=== PATIENT | male | born 1960 | race Caucasian/White ===

== ENCOUNTER 2017-01-15 10:16 | Emergency (ER) | payer BC, OTHER ==
[~2017-01-15] VITALS: Ht 188 cm; Wt 116.1 kg
--- NOTE | 2017-01-15 10:50 | ED Upper Extremity ---
General Chief Complaint: Upper Extremity Stated Complaint: RT ARM SWELLING//POSS BLOOD CLOT Nursing Triage Note: c/o right arm swelling. Onset > 1 week. Mild redness. Denies recent trauma to arm. Nursing Sepsis Screen: No Definite Risk Source: patient Exam Limitations: no limitations History of Present Illness Time seen by provider: 10:48 Initial Comments To ER with swelling and redness to the right arm for about a week. Denies any known trauma or injury. It feels numb and tingly. He has no history of this. No known injury. He reports some joint aches and pains but no fevers or chills. Onset: just prior to arrival Severity: moderate Pain/Injury Location: right arm Method of Injury: unknown Allergies and Home Medications Allergies Coded Allergies: No Known Drug Allergies (Unverified , 01/15/17) Home Medications Amoxicillin/Potassium Clav 1 Each Tablet, 1 EACH PO BID, #14 Prescribed by: TORY DRIVER on 01/15/17 1118 Constitutional: see HPI, No chills, No fever EENTM: see HPI Respiratory: no symptoms reported Cardiovascular: no symptoms reported Genitourinary: no symptoms reported Musculoskeletal: no symptoms reported Skin: see HPI Psychiatric/Neurological: No Symptoms Reported Past Flofeuc-Logrva-Hoehep Hx Patient Social History Recent Foreign Travel: No Contact w/Someone Who Travel: No Recent Infectious Disease Expo: No Physical Exam Vital Signs Vital Sign - Last 12Hours 01/15/17 10:40 Temp 99.9 Pulse 70 Resp 16 B/P (MAP) 159/102 Pulse Ox 98 O2 Delivery Mechanical Ventilator Capillary Refill : Less Than 3 Seconds General Appearance: WD/WN, no apparent distress HEENT: PERRL/EOMI, normal ENT inspection Neck: non-tender, full range of motion Respiratory: no respiratory distress, no accessory muscle use Gastrointestinal: normal bowel sounds, non tender, soft Shoulder: normal inspection, non-tender Elbow/Forearm: pain (there is an area of erythema to the volar aspect of the right forearm. There is lymphangitis seen at the medial aspect of the upper arm without a palpable cord.), swelling Wrist: Yes normal inspection, Yes non-tender Hand: normal inspection, non-tender, Right Neurologic/Tendon: normal sensation, normal motor functions Neurologic/Psychiatric: alert, normal mood/affect, oriented x 3 Skin: normal color, warm/dry Progress/Results/Core Measures Results/Orders Lab Results Laboratory Tests Test 01/15/17 10:52 Range/Units White Blood Count 6.4 4.3-11.0 10^3/uL Red Blood Count 5.22 4.35-5.85 10^6/uL Hemoglobin 14.9 13.3-17.7 G/DL Hematocrit 45 40-54 % Mean Corpuscular Volume 87 80-99 FL Mean Corpuscular Hemoglobin 29 25-34 PG Mean Corpuscular Hemoglobin Concent 33 32-36 G/DL Red Cell Distribution Width 14.2 10.0-14.5 % Platelet Count 185 130-400 10^3/uL Mean Platelet Volume 9.2 7.4-10.4 FL Neutrophils (%) (Auto) 73 42-75 % Lymphocytes (%) (Auto) 17 12-44 % Monocytes (%) (Auto) 8 0-12 % Eosinophils (%) (Auto) 2 0-10 % Basophils (%) (Auto) 0 0-10 % Neutrophils # (Auto) 4.6 1.8-7.8 X 10^3 Lymphocytes # (Auto) 1.1 1.0-4.0 X 10^3 Monocytes # (Auto) 0.5 0.0-1.0 X 10^3 Eosinophils # (Auto) 0.1 0.0-0.3 10^3/uL Basophils # (Auto) 0.0 0.0-0.1 10^3/uL Sodium Level 140 135-145 MMOL/L Potassium Level 3.6 3.6-5.0 MMOL/L Chloride Level 108 H 98-107 MMOL/L Carbon Dioxide Level 24 21-32 MMOL/L Anion Gap 8 5-14 MMOL/L Blood Urea Nitrogen 16 7-18 MG/DL Creatinine 0.90 0.60-1.30 MG/DL Estimat Glomerular Filtration Rate > 60 BUN/Creatinine Ratio 18 0-20 Glucose Level 112 H 70-105 MG/DL Calcium Level 9.5 8.5-10.1 MG/DL Total Bilirubin 0.9 0.1-1.0 MG/DL Aspartate Amino Transf (AST/SGOT) 18 5-34 U/L Alanine Aminotransferase (ALT/SGPT) 26 0-55 U/L Alkaline Phosphatase 84 40-136 U/L C-Reactive Protein High Sensitivity 4.33 H 0.00-0.50 MG/DL Total Protein 7.4 6.4-8.2 GM/DL Albumin 4.2 3.2-4.5 GM/DL My Orders Orders - TORY DRIVER APRN Cbc With Automated Diff (01/15/17 10:50) Comprehensive Metabolic Panel (01/15/17 10:50) Hs C Reactive Protein (01/15/17 10:50) Us Venous Upper Ext Rt (01/15/17 10:50) Saline Lock/Iv-Start (01/15/17 10:50) Ceftriaxone Injection (Rocephin Injectio (01/15/17 11:15) Dexamethasone Pf Injection (Decadron Pf (01/15/17 11:15) Medications Given in ED Current Medications Medications Dose Ordered Sig/Justin Route Start Time Stop Time Status Last Admin Dose Admin Ceftriaxone Sodium 1000 mg/ Sodium Chloride 50 ml @ 100 mls/hr ONCE ONCE IV 01/15/17 11:15 01/15/17 11:44 DC 01/15/17 11:30 100 MLS/HR Dexamethasone Sodium Phosphate 8 mg ONCE ONCE IV 01/15/17 11:15 01/15/17 11:16 DC 01/15/17 11:30 8 MG Vital Signs/I&O Vital Sign - Last 12Hours 01/15/17 10:40 Temp 99.9 Pulse 70 Resp 16 B/P (MAP) 159/102 Pulse Ox 98 O2 Delivery Mechanical Ventilator Blood Pressure Mean: 121 Departure Communication Progress Notes Ultrasound negative for DVT. We will treat with Rocephin and Decadron and then discharged home with Augmentin. NAME: FRANDY RIVAS A [facility] REC#: [id number] PT STATUS: REG ER : 1960 PHYSICIAN: TORY DRIVER APRN ADMIT DATE: 01/15/17/ER Signed Date of Exam:01/15/17 US VENOUS UPPER EXT RT EXAM: Right upper extremity venous duplex ultrasound. INDICATION: Right arm pain and swelling. FINDINGS: The right internal jugular, subclavian, axillary, brachial, basilic, ulnar, radial and cephalic veins demonstrate compressibility when applicable, color-flow and venous waveforms with no evidence of thrombus seen. IMPRESSION: No evidence of DVT in the right upper extremity. Dictated by: Dictated on workstation # [id number] Dict: 01/15/17 1140 Trans: 01/15/17 1148 [facility] [id number] Interpreted by: MG GATICA MD Electronically signed by: MG GATICA MD 01/15/17 1148 Impression Impression: Primary Impression: Cellulitis of forearm Disposition: 01 HOME, SELF-CARE Condition: Stable Departure-Patient Inst. Decision time for Depature: 11:17 Referrals: APRIL MCCORMICK MD (PCP) Primary Care Physician ILEANA NAVARRETE (Family) Primary Care Physician Patient Instructions: Cellulitis (Skin Infection), Adult (DC) Add. Discharge Instructions: 1. Antibiotics as directed 2. Return to ER for any fevers, chills, worsening swelling or redness or any other concerns 3. Follow-up with your doctor next week for recheck. You should expect improvement in 2-3 days. All discharge instructions reviewed with patient and/or family. Voiced understanding. Scripts Amoxicillin/Potassium Clav (Augmentin 875-125 Tablet) 1 Each Tablet 1 EACH PO BID, #14 TAB Prov: TORY DRIVER APRN 01/15/17 Copy Copies To 1: APRIL MCCORMICK MD, PETER J APRN Jan 15, 2017 10:50
[2017-01-15 11:00] LABS: BASOPHILS % (AUTO) 0 % (0-10); EOSINOPHILS # (AUTO) 0.1 10^3/uL (0.0-0.3); EOSINOPHILS % (AUTO) 2 % (0-10); LYMPHOCYTES # (AUTO) 1.1 X 10^3 (1.0-4.0); LYMPHOCYTES % (AUTO) 17 % (12-44); MEAN CORPUSCULAR HEMOGLOBIN 29 PG (25-34); MEAN CORPUSCULAR HGB CONC 33 G/DL (32-36); MEAN CORPUSCULAR VOLUME 87 FL (80-99); MEAN PLATELET VOLUME 9.2 FL (7.4-10.4); MONOCYTES # (AUTO) 0.5 X 10^3 (0.0-1.0); MONOCYTES % (AUTO) 8 % (0-12); NEUTROPHILS # (AUTO) 4.6 X 10^3 (1.8-7.8); NEUTROPHILS % (AUTO) 73 % (42-75); PLATELET COUNT 185 10^3/uL (130-400); RED BLOOD COUNT 5.22 10^6/uL (4.35-5.85); RED CELL DISTRIBUTION WIDTH 14.2 % (10.0-14.5); WHITE BLOOD COUNT 6.4 10^3/uL (4.3-11.0)
[2017-01-15] MEDS ORDERED: DEXAMETHASONE PF 10 MG/ML (DECADRON) VIAL IV ONE (11:15)
[2017-01-15] MEDS ORDERED: cefTRIAXone INJECTION 1,000 MG in NS (IVPB) 50 ML IV ONE (11:15)
[2017-01-15] MEDS ORDERED: AMOX-358 PO (11:18)
[2017-01-15 11:21] LABS: ALANINE AMINOTRANSFERASE 26 U/L (0-55); ALBUMIN 4.2 GM/DL (3.2-4.5); ANION GAP 8 MMOL/L (5-14); ASPARTATE AMINO TRANSFERASE 18 U/L (5-34); BILIRUBIN,TOTAL 0.9 MG/DL (0.1-1.0); BLOOD UREA NITROGEN 16 MG/DL (7-18); BUN/CREATININE RATIO 18 (0-20); CALCIUM 9.5 MG/DL (8.5-10.1); CARBON DIOXIDE 24 MMOL/L (21-32); CHLORIDE 108 MMOL/L (98-107); GFR ESTIMATED > 60; GLUCOSE 112 MG/DL (70-105); HEMOLYSIS 7 (-100-29); ICTERUS 0.8 (-100-1.9); LIPEMIA 0 (-100-49); POTASSIUM 3.6 MMOL/L (3.6-5.0); SODIUM 140 MMOL/L (135-145); TOTAL PROTEIN 7.4 GM/DL (6.4-8.2); hs C REACTIVE PROTEIN 4.33 MG/DL (0.00-0.50)
--- NOTE | 2017-01-15 11:45 | Diagnostic Imaging Report ---
EXAM: Right upper extremity venous duplex ultrasound. INDICATION: Right arm pain and swelling. FINDINGS: The right internal jugular, subclavian, axillary, brachial, basilic, ulnar, radial and cephalic veins demonstrate compressibility when applicable, color-flow and venous waveforms with no evidence of thrombus seen. IMPRESSION: No evidence of DVT in the right upper extremity. Dictated by: Dictated on workstation # [id number]
[2017-01-15 12:40] VITALS: BP 142/90
== END 2017-01-15 12:40 | disposition home or self-care (01) ==
LOC: EDUNIT# 10:16 → ER 10:20
DX: L03.113 Cellulitis of right upper limb (principal)
CPT/HCPCS: 36415; 80053; 85025; 86141; 96374; 96375

== ENCOUNTER 2017-02-01 11:29 | Emergency (ER) | payer BC ==
[~2017-02-01] VITALS: Ht 185.4 cm; Wt 113.4 kg
[~2017-02-01 11:29] MED LIST: AMOX-358 PO
[2017-02-01] MEDS ORDERED: SIMV10TA3 (12:11)
[2017-02-01] MEDS ORDERED: LISI10TA2 (12:11)
[2017-02-01] MEDS ORDERED: DAPA10TA (12:11)
[2017-02-01] MEDS ORDERED: GLIM4TAB (12:11)
[2017-02-01] MEDS ORDERED: DEXAMETHASONE PF 10 MG/ML (DECADRON) VIAL IM STA (12:25)
[2017-02-01] MEDS ORDERED: DOXY100T2 PO (12:40)
--- NOTE | 2017-02-01 12:40 | ED General ---
General Chief Complaint: Facial Problems Stated Complaint: L SIDE FACIAL SWELLING Nursing Triage Note: ARRIVED VIA AMB TO ROOM 10 WITHOUT DIFFICULTY. COMPLAINS OF LEFT SIDED FACIAL EDEMA STARTING THIS AM. DENIES ALLERGIES. STATES THE AREA FEELS NUMB. Nursing Sepsis Screen: No Definite Risk Source of Information: Patient Exam Limitations: No Limitations History of Present Illness Time Seen by Provider: 12:15 Initial Comments Here with report of swelling to the area below the jaw line on the neck on the left. States it feels numb to that area and swollen. Woke up this morning like that. No recent injuries reported. Area does have a central core with surrounding erythema. Also complains of right elbow swelling and pain. Was seen here a few weeks ago and treated for cellulitis. States it got better on Augmentin but has not gone away. Denies fever or chills. Denies nausea or vomiting. Timing/Duration: 4-6 Hours Severity: Moderate Associated Systoms: No Chest Pain, No Cough, No Fever/Chills, No Nausea/ Vomiting, No Shortness of Air, No Weakness Allergies and Home Medications Allergies Coded Allergies: No Known Drug Allergies (Unverified , 01/15/17) Home Medications Dapagliflozin Propanediol 10 Mg Tablet, #90 (Reported) Glimepiride 4 Mg Tablet, #90 (Reported) Lisinopril 10 Mg Tablet, #90 (Reported) Simvastatin 10 Mg Tablet, #90 (Reported) Constitutional: see HPI, No chills, No fever Respiratory: no symptoms reported Cardiovascular: no symptoms reported Gastrointestinal: no symptoms reported Musculoskeletal: see HPI, joint pain, joint swelling Skin: see HPI, change in color All Other Systems Reviewed Negative Unless Noted: Yes Past Prxkeuq-Wudihr-Vtlzzo Hx Patient Social History Alcohol Use: Rarely Uses Recreational Drug Use: No Smoking Status: Never a Smoker Recent Foreign Travel: No Contact w/Someone Who Travel: No Recent Infectious Disease Expo: No Reviewed Nursing Assessment Reviewed/Agree w Nursing PMH: Yes Family Medical History Significant Family History: No Pertinent Family Hx Physical Exam Vital Signs Vital Sign - Last 12Hours 02/01/17 11:50 Temp 98.0 Pulse 77 Resp 16 B/P (MAP) 149/99 Pulse Ox 98 Capillary Refill : Less Than 3 Seconds General Appearance: No Apparent Distress, WD/WN HEENT: PERRL/EOMI, Pharynx Normal Neck: Non Tender, Supple Respiratory: Lungs Clear, Normal Breath Sounds Cardiovascular: Regular Rate, Rhythm, No Murmur Extremity: Normal Range of Motion, Swelling (right elbow) Neurologic/Psychiatric: Alert, Oriented x3 Skin: Warm/Dry, Other (area of erythema with 2 x 2 centimeter surrounding induration to the left side of the neck below the jawline. There is a small central pustule consistent with insect bite or sting. Induration [place] within the soft tissue of the neck.) Progress/Results/Core Measures Results/Orders My Orders Orders - ERMIAS CARRILLO MD Dexamethasone Pf Injection (Decadron Pf (02/01/17 12:25) Vital Signs/I&O Vital Sign - Last 12Hours 02/01/17 11:50 Temp 98.0 Pulse 77 Resp 16 B/P (MAP) 149/99 Pulse Ox 98 Blood Pressure Mean: 116 Progress Note : Progress Note Seen and evaluated. Decadron 10 mg IM. Discharged home with return precautions. Patient verbalize understanding instructions and agreement with plan. Departure Impression Impression: Primary Impression: Insect bite or sting Additional Impression: Right arm cellulitis Disposition: 01 HOME, SELF-CARE Condition: Improved Departure-Patient Inst. Decision time for Depature: 12:39 Referrals: APRIL MCCORMICK MD (PCP) Primary Care Physician ILEANA NAVARRETE (Family) Primary Care Physician Patient Instructions: Cellulitis (Skin Infection), Adult (DC), Insect Bites and Stings (DC) Add. Discharge Instructions: All discharge instructions reviewed with patient and/or family. Voiced understanding. Take medications as directed. Limit sun exposure due to antibiotics. Follow- up with your DrJhonatan in a few days for recheck. Return for worse pain, fever, weakness, increasing redness or swelling, difficulty with swallowing or breathing or other concerns as needed. You may take ibuprofen 800 mg every 8 hours as needed for pain and swelling. Use ice packs to affected area of swelling especially of the right elbow. Scripts Doxycycline Hyclate (Doxycycline Hyclate) 100 Mg Tablet 100 MG PO BID, #20 TAB 0 Refills Prov: ERMIAS CARRILLO MD 02/01/17 ERMIAS CARRILLO MD Feb 01, 2017 12:40
[2017-02-01 12:48] VITALS: BP 137/89
== END 2017-02-01 12:48 | disposition home or self-care (01) ==
LOC: EDUNIT# 11:29 → ER 11:31
DX: S10.96XA Insect bite of unspecified part of neck, initial encounter (principal); L03.113 Cellulitis of right upper limb; W57.XXXA Bitten or stung by nonvenomous insect and other nonvenomous arthropods, initial encounter
CPT/HCPCS: 96372; 99284